=== PATIENT | male | born 1980 | race African-American/Black ===

== ENCOUNTER 2020-12-16 15:08 | Inpatient (IN) | payer BC ==
[2020-12-16 17:02] VITALS: BMI 29.7
[2020-12-16] MEDS ORDERED: MAG HYDROX/AL HYDROX/SIMETH 30 ML UNIT-DOSE CUP PO PRN (20:36)
[2020-12-16] MEDS ORDERED: MAGNESIUM CITRATE 300 ML BOTTLE PO PRN (20:36)
[2020-12-16] MEDS ORDERED: NICOTINE POLACRILEX 2 MG GUM BC PRN (20:36)
[2020-12-16] MEDS ORDERED: IBUPROFEN 400 MG TABLET (FP) PO PRN (20:36)
[2020-12-16] MEDS ORDERED: LOPERAMIDE HCL 2 MG CAPSULE PO PRN (20:36)
[2020-12-16] MEDS ORDERED: MAGNESIUM HYDROX 2400MG/30ML ORAL SUSPENSION 30 ML CUP PO PRN (20:36)
[2020-12-16] MEDS ORDERED: P-EPHED 60MG/TRIPROLIDI 2.5MG TABLET PO PRN (20:36)
[2020-12-16] MEDS ORDERED: ACETAMINOPHEN 325 MG TABLET (FP) PO PRN (20:36)
[2020-12-16] MEDS ORDERED: TUBERCULIN PPD 5 TU/0.1ML VIAL ID ONE (22:08)
[2020-12-16] MEDS: MELATONIN 5 MG TABLETS PO SCH (23:03)
[2020-12-16] MEDS: THIAMINE HCL 100 MG TABLET (FP) PO SCH (23:05)
[2020-12-17] MEDS ORDERED: PT OWN MED DRAWER 7, Y5N ONE ×2 (09:02→19:13)
[2020-12-17] MEDS ORDERED: APIXABAN 5 MG TABLET PO SCH ×2 (09:15→10:00)
[2020-12-17] MEDS: NICOTINE 21 MG/24 HOURS TOPICAL PATCH TD SCH (09:50)
[2020-12-17] MEDS: FUROSEMIDE 40 MG TABLET (FP) PO SCH (09:51)
[2020-12-17] MEDS: APIXABAN 5 MG TABLET PO SCH ×2 (09:51→20:59)
[2020-12-17] MEDS: PANTOPRAZOLE 40 MG TABLET PO SCH (09:51)
[2020-12-17] MEDS: SPIRONOLACTONE 25 MG TABLET PO SCH (09:52)
[2020-12-17] MEDS: COLCHICINE 0.6 MG TAB PO SCH ×2 (09:52→20:59)
[2020-12-17] MEDS: predniSONE 20 MG TABLET (UD) PO SCH (09:52)
[2020-12-17] MEDS: PRENATAL VITAMINS W/ FOLIC ACID TABLET (FP) PO SCH (09:53)
[2020-12-17] MEDS: SACUBITRIL/VALSARTAN 24 MG-26 MG TABLET PO SCH ×2 (09:53→21:00)
[2020-12-17] MEDS: BUDESONIDE/FORMETEROL FUMARATE 80/4.5 mcg INHALER IH SCH ×2 (09:54→21:23)
[2020-12-17] MEDS ORDERED: ALBUTEROL SO4 HFA INHALER IH SCH (10:00)
[2020-12-17 10:21] LABS: ALBUMIN 3.3 g/dl (3.4-5.0); BLOOD UREA NITROGEN 21.4 mg/dL (7-18); CALCIUM 9.3 mg/dL (8.5-10.1); HEMATOCRIT 37.9 % (35.4-49); HEMOGLOBIN 12.5 GM/dL (11.7-16.9); MCH 33.4 pg (25.7-33.7); MEAN CELL VOLUME 101.2 fl (80-96); MEAN PLT VOLUME 10.7 fl (7.5-11.1); PLATELET COUNT 146 K/MM3 (134-434); RBC 3.75 M/mm3 (4.00-5.60); RDW 17.1 % (11.9-15.9); WHITE BLOOD COUNT 8.9 K/mm3 (4.0-10.0)
[2020-12-17 10:24] LABS: CREATININE 1.4 mg/dL (0.55-1.3)
[2020-12-17 10:25] LABS: BILIRUBIN,TOTAL 0.7 mg/dL (0.2-1)
[2020-12-17 10:26] LABS: TOT PROT 7.4 g/dl (6.4-8.2)
[2020-12-17] MEDS: ALBUTEROL SO4 HFA INHALER IH PRN (11:45)
[2020-12-17 14:45] LABS: EPI CELLS 4 /uL (0-25.1); HYALINE CASTS 1 /uL (0-3.1); URINE APPEARANCE CLEAR; URINE BACTERIA 54 /uL (0-1359); URINE BILIRUBIN NEGATIVE (NEGATIVE); URINE COLOR YELLOW; URINE GLUCOSE (UA) NEGATIVE (NEGATIVE); URINE KETONE NEGATIVE (NEGATIVE); URINE LEUK ESTERASE NEGATIVE (NEGATIVE); URINE NITRITE NEGATIVE (NEGATIVE); URINE PROTEIN 1+ (NEGATIVE); URINE RBC 4 /uL (0-23.9); URINE UROBILINOGEN 0.2 mg/dL (0.2-1.0); URINE WBC 6 /uL (0-25.8)
[2020-12-17] MEDS: THIAMINE HCL 100 MG TABLET (FP) PO SCH (20:59)
[2020-12-17] MEDS: MELATONIN 5 MG TABLETS PO SCH (20:59)
[2020-12-18] MEDS: BUDESONIDE/FORMETEROL FUMARATE 80/4.5 mcg INHALER IH SCH ×2 (09:30→21:09)
[2020-12-18] MEDS: ALBUTEROL SO4 HFA INHALER IH PRN (09:30)
[2020-12-18] MEDS: predniSONE 20 MG TABLET (UD) PO SCH (09:50)
[2020-12-18] MEDS: FUROSEMIDE 40 MG TABLET (FP) PO SCH (09:50)
[2020-12-18] MEDS: PANTOPRAZOLE 40 MG TABLET PO SCH (09:50)
[2020-12-18] MEDS: APIXABAN 5 MG TABLET PO SCH ×2 (09:50→21:07)
[2020-12-18] MEDS: SPIRONOLACTONE 25 MG TABLET PO SCH (09:50)
[2020-12-18] MEDS: SACUBITRIL/VALSARTAN 24 MG-26 MG TABLET PO SCH ×2 (09:51→21:09)
[2020-12-18] MEDS: COLCHICINE 0.6 MG TAB PO SCH ×2 (09:51→21:08)
[2020-12-18] MEDS: PRENATAL VITAMINS W/ FOLIC ACID TABLET (FP) PO SCH (09:52)
[2020-12-18] MEDS: NICOTINE 21 MG/24 HOURS TOPICAL PATCH TD SCH (09:52)
[2020-12-18] MEDS: THIAMINE HCL 100 MG TABLET (FP) PO SCH (21:07)
[2020-12-18] MEDS: MELATONIN 5 MG TABLETS PO SCH (21:07)
[2020-12-18] MEDS ORDERED: PT OWN MED DRAWER 7, Y5N ONE (21:08)
[2020-12-19] MEDS ORDERED: PT OWN MED DRAWER 7, Y5N ONE (08:43)
[2020-12-19] MEDS: SPIRONOLACTONE 25 MG TABLET PO SCH (09:26)
[2020-12-19] MEDS: APIXABAN 5 MG TABLET PO SCH ×2 (09:27→21:19)
[2020-12-19] MEDS: PANTOPRAZOLE 40 MG TABLET PO SCH (09:27)
[2020-12-19] MEDS: COLCHICINE 0.6 MG TAB PO SCH ×2 (09:27→21:19)
[2020-12-19] MEDS: FUROSEMIDE 40 MG TABLET (FP) PO SCH (09:27)
[2020-12-19] MEDS: predniSONE 20 MG TABLET (UD) PO SCH (09:27)
[2020-12-19] MEDS: BUDESONIDE/FORMETEROL FUMARATE 80/4.5 mcg INHALER IH SCH ×2 (09:28→21:19)
[2020-12-19] MEDS: NICOTINE 21 MG/24 HOURS TOPICAL PATCH TD SCH (09:28)
[2020-12-19] MEDS: PRENATAL VITAMINS W/ FOLIC ACID TABLET (FP) PO SCH (09:28)
[2020-12-19] MEDS: SACUBITRIL/VALSARTAN 24 MG-26 MG TABLET PO SCH ×2 (09:28→21:20)
[2020-12-19] MEDS: guaiFENesin 200 MG/10 ML 10 ML UNIT-DOSE CUPS PO PRN (18:48)
[2020-12-19] MEDS: MELATONIN 5 MG TABLETS PO SCH (21:20)
[2020-12-19] MEDS: THIAMINE HCL 100 MG TABLET (FP) PO SCH (21:20)
[2020-12-19 21:59] VITALS: TEMP 97.1
[2020-12-20] MEDS: guaiFENesin 200 MG/10 ML 10 ML UNIT-DOSE CUPS PO PRN (04:38)
[2020-12-20 08:09] LABS: SARS-CoV-2 NAA Not Detected (Not Detected)
[2020-12-20] MEDS ORDERED: PT OWN MED DRAWER 7, Y5N ONE (08:27)
[2020-12-20 08:58] VITALS: BP 123/83; PULSE 56
[2020-12-20] MEDS: predniSONE 20 MG TABLET (UD) PO SCH (09:02)
[2020-12-20] MEDS: APIXABAN 5 MG TABLET PO SCH (09:02)
[2020-12-20] MEDS: PANTOPRAZOLE 40 MG TABLET PO SCH (09:02)
[2020-12-20] MEDS: BUDESONIDE/FORMETEROL FUMARATE 80/4.5 mcg INHALER IH SCH (09:03)
[2020-12-20] MEDS: SACUBITRIL/VALSARTAN 24 MG-26 MG TABLET PO SCH (09:03)
[2020-12-20] MEDS: NICOTINE 21 MG/24 HOURS TOPICAL PATCH TD SCH (09:09)
[2020-12-20] MEDS: PRENATAL VITAMINS W/ FOLIC ACID TABLET (FP) PO SCH (09:09)
[2020-12-20] MEDS: FUROSEMIDE 40 MG TABLET (FP) PO SCH (10:00)
[2020-12-20] MEDS: COLCHICINE 0.6 MG TAB PO SCH (10:00)
[2020-12-20] MEDS: SPIRONOLACTONE 25 MG TABLET PO SCH (10:00)
== END 2020-12-20 14:30 | disposition short-term general hospital (02) | DRG 772 ==
LOC: YASAS 15:08 → Y3E 21:22
PROVIDERS: ADMIT Allergy & Immunology; ATTEND Allergy & Immunology
PROC: HZ42ZZZ Group Counseling for Substance Abuse Treatment, Cognitive-Behavioral (ICD-10-PCS; principal; 2020-12-16)
DX: F14.20 Cocaine dependence, uncomplicated (principal); F10.10 Alcohol abuse, uncomplicated; F17.210 Nicotine dependence, cigarettes, uncomplicated; F19.282 Other psychoactive substance dependence with psychoactive substance-induced sleep disorder; F19.24 Other psychoactive substance dependence with psychoactive substance-induced mood disorder; I11.0 Hypertensive heart disease with heart failure; I50.9 Heart failure, unspecified; J45.909 Unspecified asthma, uncomplicated; R07.89 Other chest pain; R06.02 Shortness of breath; R73.03 Prediabetes; R45.89 Other symptoms and signs involving emotional state; Z86.711 Personal history of pulmonary embolism; Z79.01 Long term (current) use of anticoagulants; Z59.0 Homelessness
CPT/HCPCS: 36415; 80053; 81003; 84132; 85027; 86780; 93005; 93010; C9803; U0003; U0005

== ENCOUNTER 2020-12-20 09:56 | Inpatient (IN) | payer BC ==
[2020-12-20 10:05] VITALS: BMI 27.8
[2020-12-20] MEDS ORDERED: FUROSEMIDE 40 MG/4 ML INJECTABLE VIAL IVPUSH ONE (10:45)
[2020-12-20 11:26] LABS: BASO % 0.7 % (0-2.0); EOS % 0.8 % (0-4.5); HEMATOCRIT 36.3 % (35.4-49); HEMOGLOBIN 11.9 GM/dL (11.7-16.9); LYMPH % 27.6 % (8-40); MCHC 32.8 g/dl (32.0-35.9); MEAN CELL VOLUME 100.6 fl (80-96); MEAN PLT VOLUME 10.4 fl (7.5-11.1); MONO % 13.1 % (3.8-10.2); NEUT % 57.8 % (42.8-82.8); PLATELET COUNT 205 K/MM3 (134-434); RBC 3.61 M/mm3 (4.00-5.60); WHITE BLOOD COUNT 7.7 K/mm3 (4.0-10.0)
[2020-12-20 11:37] LABS: INR 1.31 (0.83-1.09)
[2020-12-20 11:40] LABS: ACTIVATED PTT 30.5 SECONDS (25.2-36.5)
[2020-12-20 11:44] LABS: ALBUMIN 3.2 g/dl (3.4-5.0); CALCIUM 9.2 mg/dL (8.5-10.1); MAGNESIUM 2.1 mg/dL (1.8-2.4)
[2020-12-20] MEDS ORDERED: FUROSEMIDE 40 MG/4 ML INJECTABLE VIAL ONE (11:46)
[2020-12-20 11:47] LABS: CREATININE 1.1 mg/dL (0.55-1.3)
[2020-12-20 11:48] LABS: BILIRUBIN,TOTAL 0.6 mg/dL (0.2-1)
[2020-12-20 11:49] LABS: TOT PROT 7.3 g/dl (6.4-8.2)
[2020-12-20] MEDS ORDERED: ASPIRIN 81 MG CHEWABLE TABLETS PO ONE (14:00)
[2020-12-20] MEDS: PANTOPRAZOLE 40 MG TABLET PO SCH (16:18)
[2020-12-20] MEDS: SPIRONOLACTONE 25 MG TABLET PO SCH (16:19)
[2020-12-20] MEDS ORDERED: ALBUTEROL SO4 HFA INHALER IH ONE (18:29)
[2020-12-20] MEDS: ALBUTEROL SO4 HFA INHALER IH SCH ×2 (18:32→22:12)
[2020-12-20] MEDS ORDERED: COLCHICINE 0.6 MG CAP ONE (21:45)
[2020-12-20] MEDS ORDERED: ATORVASTATIN CA 80 MG TABLET (FP) ONE (21:45)
[2020-12-20] MEDS ORDERED: APIXABAN 5 MG TABLET ONE (21:45)
[2020-12-20] MEDS: COLCHICINE 0.6 MG CAP PO SCH (21:53)
[2020-12-20] MEDS: ATORVASTATIN CA 80 MG TABLET (FP) PO SCH (21:53)
[2020-12-20] MEDS: APIXABAN 5 MG TABLET PO SCH (21:53)
[2020-12-20] MEDS: SACUBITRIL/VALSARTAN 24 MG-26 MG TABLET PO SCH (22:12)
[2020-12-20] MEDS: BUDESONIDE/FORMETEROL FUMARATE 80/4.5 mcg INHALER IH SCH (22:12)
[2020-12-21] MEDS ORDERED: MELATONIN 5 MG TABLETS ONE (02:21)
[2020-12-21] MEDS: MELATONIN 5 MG TABLETS PO PRN (02:32)
[2020-12-21 06:37] LABS: BASO % 0.8 % (0-2.0); EOS % 0.8 % (0-4.5); HEMATOCRIT 36.2 % (35.4-49); HEMOGLOBIN 11.9 GM/dL (11.7-16.9); LYMPH % 29.6 % (8-40); MCH 33.3 pg (25.7-33.7); MCHC 32.9 g/dl (32.0-35.9); MEAN CELL VOLUME 101.2 fl (80-96); MEAN PLT VOLUME 10.2 fl (7.5-11.1); MONO % 9.7 % (3.8-10.2); NEUT % 59.1 % (42.8-82.8); PLATELET COUNT 186 K/MM3 (134-434); RBC 3.58 M/mm3 (4.00-5.60); RDW 17.1 % (11.9-15.9); WHITE BLOOD COUNT 7.6 K/mm3 (4.0-10.0)
[2020-12-21 06:44] LABS: INR 1.34 (0.83-1.09); PROTHROMBIN TIME (PATIENT) 16.3 SEC (9.7-13.0)
[2020-12-21 06:57] LABS: ALBUMIN 3.3 g/dl (3.4-5.0); MAGNESIUM 1.9 mg/dL (1.8-2.4)
[2020-12-21 06:58] LABS: CALCIUM 9.3 mg/dL (8.5-10.1)
[2020-12-21 06:59] LABS: BLOOD UREA NITROGEN 27.7 mg/dL (7-18)
[2020-12-21 07:01] LABS: CREATININE 1.3 mg/dL (0.55-1.3)
[2020-12-21 07:02] LABS: PHOSPHOROUS 5.4 mg/dL (2.5-4.9); TOT PROT 7.1 g/dl (6.4-8.2)
[2020-12-21 07:03] LABS: BILIRUBIN,TOTAL 0.7 mg/dL (0.2-1)
[2020-12-21] MEDS ORDERED: FUROSEMIDE 40 MG/4 ML INJECTABLE VIAL IVPUSH SCH (10:00)
[2020-12-21] MEDS ORDERED: APIXABAN 5 MG TABLET PO SCH (10:00)
[2020-12-21] MEDS: APIXABAN 5 MG TABLET PO SCH ×2 (11:06→21:42)
[2020-12-21] MEDS: SPIRONOLACTONE 25 MG TABLET PO SCH (11:06)
[2020-12-21] MEDS: ALBUTEROL SO4 HFA INHALER IH SCH ×4 (11:06→21:43)
[2020-12-21] MEDS: PANTOPRAZOLE 40 MG TABLET PO SCH (11:06)
[2020-12-21] MEDS: COLCHICINE 0.6 MG CAP PO SCH ×2 (11:06→21:42)
[2020-12-21] MEDS: BUDESONIDE/FORMETEROL FUMARATE 80/4.5 mcg INHALER IH SCH ×2 (13:21→22:27)
[2020-12-21] MEDS: SACUBITRIL/VALSARTAN 24 MG-26 MG TABLET PO SCH ×2 (13:21→21:42)
[2020-12-21] MEDS: FUROSEMIDE 40 MG/4 ML INJECTABLE VIAL IVPUSH SCH (17:34)
[2020-12-21] MEDS ORDERED: PT OWN MED DRAWER 7, Y5N ONE ×2 (21:12→21:14)
[2020-12-21] MEDS: ATORVASTATIN CA 80 MG TABLET (FP) PO SCH (21:43)
[2020-12-22] MEDS: FUROSEMIDE 40 MG/4 ML INJECTABLE VIAL IVPUSH SCH ×2 (05:46→17:01)
[2020-12-22 07:21] LABS: HEMATOCRIT 37.2 % (35.4-49); HEMOGLOBIN 12.3 GM/dL (11.7-16.9); MCH 32.9 pg (25.7-33.7); MCHC 33.1 g/dl (32.0-35.9); MEAN CELL VOLUME 99.3 fl (80-96); PLATELET COUNT 220 K/MM3 (134-434); RBC 3.74 M/mm3 (4.00-5.60); RDW 16.8 % (11.9-15.9)
[2020-12-22 07:42] LABS: CALCIUM 9.4 mg/dL (8.5-10.1)
[2020-12-22 07:43] LABS: BLOOD UREA NITROGEN 27.3 mg/dL (7-18)
[2020-12-22 07:45] LABS: ALBUMIN 3.2 g/dl (3.4-5.0)
[2020-12-22 07:46] LABS: CREATININE 1.3 mg/dL (0.55-1.3)
[2020-12-22 07:47] LABS: BILIRUBIN,TOTAL 0.9 mg/dL (0.2-1)
[2020-12-22] MEDS: SPIRONOLACTONE 25 MG TABLET PO SCH (09:52)
[2020-12-22] MEDS: APIXABAN 5 MG TABLET PO SCH (09:52)
[2020-12-22] MEDS: PANTOPRAZOLE 40 MG TABLET PO SCH (09:53)
[2020-12-22] MEDS: ALBUTEROL SO4 HFA INHALER IH SCH ×4 (09:53→21:50)
[2020-12-22] MEDS: COLCHICINE 0.6 MG CAP PO SCH ×2 (09:53→21:49)
[2020-12-22] MEDS: BUDESONIDE/FORMETEROL FUMARATE 80/4.5 mcg INHALER IH SCH ×2 (09:54→21:50)
[2020-12-22] MEDS: SACUBITRIL/VALSARTAN 24 MG-26 MG TABLET PO SCH ×2 (09:54→22:10)
[2020-12-22] MEDS ORDERED: PT OWN MED DRAWER 7, Y5N ONE (21:26)
[2020-12-22] MEDS: ATORVASTATIN CA 80 MG TABLET (FP) PO SCH (21:49)
[2020-12-22] MEDS: MELATONIN 5 MG TABLETS PO PRN (22:10)
[2020-12-23] MEDS: FUROSEMIDE 40 MG/4 ML INJECTABLE VIAL IVPUSH SCH ×2 (05:51→17:17)
[2020-12-23 07:48] LABS: HEMOGLOBIN 12.2 GM/dL (11.7-16.9); MCHC 32.9 g/dl (32.0-35.9); MEAN CELL VOLUME 100.4 fl (80-96); MEAN PLT VOLUME 10.3 fl (7.5-11.1); PLATELET COUNT 205 K/MM3 (134-434); RBC 3.68 M/mm3 (4.00-5.60); RDW 16.9 % (11.9-15.9); WHITE BLOOD COUNT 7.1 K/mm3 (4.0-10.0)
[2020-12-23 08:02] LABS: ALBUMIN 3.3 g/dl (3.4-5.0); CALCIUM 9.1 mg/dL (8.5-10.1)
[2020-12-23 08:03] LABS: BLOOD UREA NITROGEN 33.9 mg/dL (7-18)
[2020-12-23 08:06] LABS: CREATININE 1.3 mg/dL (0.55-1.3)
[2020-12-23 08:07] LABS: BILIRUBIN,TOTAL 0.8 mg/dL (0.2-1); TOT PROT 7.1 g/dl (6.4-8.2)
[2020-12-23] MEDS ORDERED: PT OWN MED DRAWER 7, Y5N ONE ×2 (09:24→21:08)
[2020-12-23] MEDS: ALBUTEROL SO4 HFA INHALER IH SCH ×4 (09:43→21:40)
[2020-12-23] MEDS: BUDESONIDE/FORMETEROL FUMARATE 80/4.5 mcg INHALER IH SCH ×2 (09:43→21:37)
[2020-12-23] MEDS: ENOXAPARIN NA (PORCINE) 40 MG/0.4 ML DISP.SYRIN SQ SCH (09:43)
[2020-12-23] MEDS: SPIRONOLACTONE 25 MG TABLET PO SCH (09:44)
[2020-12-23] MEDS: SACUBITRIL/VALSARTAN 24 MG-26 MG TABLET PO SCH ×2 (09:44→21:37)
[2020-12-23] MEDS: COLCHICINE 0.6 MG CAP PO SCH ×2 (09:44→21:46)
[2020-12-23] MEDS: PANTOPRAZOLE 40 MG TABLET PO SCH (09:44)
[2020-12-23] MEDS: MELATONIN 5 MG TABLETS PO PRN (21:36)
[2020-12-23] MEDS: ATORVASTATIN CA 80 MG TABLET (FP) PO SCH (21:37)
[2020-12-24 07:12] LABS: HEMATOCRIT 37.3 % (35.4-49); HEMOGLOBIN 12.7 GM/dL (11.7-16.9); MCH 33.9 pg (25.7-33.7); MCHC 34.1 g/dl (32.0-35.9); MEAN CELL VOLUME 99.2 fl (80-96); MEAN PLT VOLUME 9.7 fl (7.5-11.1); PLATELET COUNT 241 K/MM3 (134-434); RBC 3.76 M/mm3 (4.00-5.60); RDW 16.2 % (11.9-15.9); WHITE BLOOD COUNT 6.7 K/mm3 (4.0-10.0)
[2020-12-24 07:37] LABS: ALBUMIN 3.3 g/dl (3.4-5.0)
[2020-12-24 07:38] LABS: BLOOD UREA NITROGEN 34.4 mg/dL (7-18); CALCIUM 8.9 mg/dL (8.5-10.1)
[2020-12-24 07:42] LABS: CREATININE 1.4 mg/dL (0.55-1.3)
[2020-12-24 07:43] LABS: BILIRUBIN,TOTAL 0.9 mg/dL (0.2-1); TOT PROT 6.8 g/dl (6.4-8.2)
[2020-12-24] MEDS ORDERED: PT OWN MED DRAWER 7, Y5N ONE (09:35)
[2020-12-24] MEDS: ENOXAPARIN NA (PORCINE) 40 MG/0.4 ML DISP.SYRIN SQ SCH (09:45)
[2020-12-24] MEDS: PANTOPRAZOLE 40 MG TABLET PO SCH (09:45)
[2020-12-24] MEDS: ALBUTEROL SO4 HFA INHALER IH SCH ×3 (09:46→17:01)
[2020-12-24] MEDS: SPIRONOLACTONE 25 MG TABLET PO SCH (09:46)
[2020-12-24] MEDS: SACUBITRIL/VALSARTAN 24 MG-26 MG TABLET PO SCH (09:46)
[2020-12-24] MEDS: BUDESONIDE/FORMETEROL FUMARATE 80/4.5 mcg INHALER IH SCH (09:46)
[2020-12-24] MEDS: COLCHICINE 0.6 MG CAP PO SCH (09:46)
[2020-12-24] MEDS ORDERED: FUROSEMIDE 40 MG TABLET (FP) PO SCH (10:00)
[2020-12-24 10:05] VITALS: PULSE 102
[2020-12-24] MEDS ORDERED: FUROSEMIDE 40 MG TABLET (FP) PO ONE (11:35)
[2020-12-24 13:54] VITALS: BP 103/79; TEMP 98.3
== END 2020-12-24 17:46 | disposition home or self-care (01) | DRG 194 ==
LOC: JER 09:56 → JERBED 14:01 → J4W 12-21 09:18
PROVIDERS: ATTEND Internal Medicine
DX: I11.0 Hypertensive heart disease with heart failure (principal); F14.20 Cocaine dependence, uncomplicated; R18.8 Other ascites; I50.23 Acute on chronic systolic (congestive) heart failure; F10.10 Alcohol abuse, uncomplicated; Z91.14 Patient's other noncompliance with medication regimen; M10.9 Gout, unspecified; I48.91 Unspecified atrial fibrillation; E11.9 Type 2 diabetes mellitus without complications; Z79.01 Long term (current) use of anticoagulants; E78.5 Hyperlipidemia, unspecified; I42.0 Dilated cardiomyopathy; Z86.711 Personal history of pulmonary embolism
CPT/HCPCS: 36415; 71046-TC-FY; 71275-TC; 74177-TC; 76604; 76705-TC; 80053; 80061; 82550; 82607; 83721; 83735; 83880; 84100; 84484; 85025; 85027; 85610; 85730; 93005; 93010; 93306-TC; 93308; 99285-25; Q9967

== ENCOUNTER 2020-12-24 18:09 | Inpatient (IN) | payer BC ==
[2020-12-24 20:13] VITALS: BMI 27.8
[2020-12-24] MEDS ORDERED: MAGNESIUM HYDROX 2400MG/30ML ORAL SUSPENSION 30 ML CUP PO PRN (22:20)
[2020-12-24] MEDS ORDERED: MENTHOL/PHENOL 1 EACH UD MM PRN (22:20)
[2020-12-24] MEDS ORDERED: IBUPROFEN 400 MG TABLET (FP) PO PRN (22:20)
[2020-12-24] MEDS ORDERED: LOPERAMIDE HCL 2 MG CAPSULE PO PRN (22:20)
[2020-12-24] MEDS ORDERED: MAGNESIUM CITRATE 300 ML BOTTLE PO PRN (22:20)
[2020-12-24] MEDS ORDERED: NICOTINE POLACRILEX 2 MG GUM BUC PRN (22:20)
[2020-12-24] MEDS ORDERED: MAG HYDROX/AL HYDROX/SIMETH 30 ML UNIT-DOSE CUP PO PRN (22:20)
[2020-12-24] MEDS ORDERED: guaiFENesin 200 MG/10 ML 10 ML UNIT-DOSE CUPS PO PRN (22:20)
[2020-12-24] MEDS ORDERED: ACETAMINOPHEN 325 MG TABLET (FP) PO PRN (22:20)
[2020-12-24] MEDS ORDERED: P-EPHED 60MG/TRIPROLIDI 2.5MG TABLET PO PRN (22:20)
[2020-12-25] MEDS: MELATONIN 5 MG TABLETS PO SCH ×2 (00:51→21:48)
[2020-12-25] MEDS: NICOTINE 21 MG/24 HOURS TOPICAL PATCH TD SCH (09:56)
[2020-12-25] MEDS: PRENATAL VITAMINS W/ FOLIC ACID TABLET (FP) PO SCH (09:56)
[2020-12-25] MEDS: THIAMINE HCL 100 MG TABLET (FP) PO SCH (21:48)
[2020-12-26 06:34] VITALS: TEMP 97.7
[2020-12-26] MEDS: NICOTINE 21 MG/24 HOURS TOPICAL PATCH TD SCH (09:51)
[2020-12-26] MEDS: PRENATAL VITAMINS W/ FOLIC ACID TABLET (FP) PO SCH (09:51)
[2020-12-26] MEDS: FUROSEMIDE 40 MG TABLET (FP) PO SCH (11:56)
[2020-12-26] MEDS: SPIRONOLACTONE 25 MG TABLET PO SCH (11:56)
[2020-12-26] MEDS: PANTOPRAZOLE 40 MG TABLET PO SCH (11:57)
[2020-12-26] MEDS: SACUBITRIL/VALSARTAN 24 MG-26 MG TABLET PO SCH (21:21)
[2020-12-26] MEDS: THIAMINE HCL 100 MG TABLET (FP) PO SCH (21:21)
[2020-12-26] MEDS: COLCHICINE 0.6 MG TAB PO SCH (21:21)
[2020-12-26] MEDS: MELATONIN 5 MG TABLETS PO SCH (21:21)
[2020-12-26] MEDS: BUDESONIDE/FORMETEROL FUMARATE 80/4.5 mcg INHALER IH SCH (21:25)
[2020-12-27 07:11] VITALS: BP 112/72; PULSE 103
[2020-12-27] MEDS: SACUBITRIL/VALSARTAN 24 MG-26 MG TABLET PO SCH (09:59)
[2020-12-27] MEDS: FUROSEMIDE 40 MG TABLET (FP) PO SCH (09:59)
[2020-12-27] MEDS: SPIRONOLACTONE 25 MG TABLET PO SCH (09:59)
[2020-12-27] MEDS: PANTOPRAZOLE 40 MG TABLET PO SCH (09:59)
[2020-12-27] MEDS: PRENATAL VITAMINS W/ FOLIC ACID TABLET (FP) PO SCH (09:59)
[2020-12-27] MEDS: COLCHICINE 0.6 MG TAB PO SCH (09:59)
[2020-12-27] MEDS: BUDESONIDE/FORMETEROL FUMARATE 80/4.5 mcg INHALER IH SCH (10:01)
[2020-12-27] MEDS: NICOTINE 21 MG/24 HOURS TOPICAL PATCH TD SCH (10:30)
== END 2020-12-27 12:32 | disposition home or self-care (01) | DRG 772 ==
LOC: YASAS 18:09 → Y5N 22:20
PROVIDERS: ADMIT Allergy & Immunology; ATTEND Allergy & Immunology
PROC: HZ42ZZZ Group Counseling for Substance Abuse Treatment, Cognitive-Behavioral (ICD-10-PCS; principal; 2020-12-24)
DX: F10.20 Alcohol dependence, uncomplicated (principal); F14.20 Cocaine dependence, uncomplicated; F17.210 Nicotine dependence, cigarettes, uncomplicated; F19.24 Other psychoactive substance dependence with psychoactive substance-induced mood disorder; I11.0 Hypertensive heart disease with heart failure; I50.23 Acute on chronic systolic (congestive) heart failure; R18.8 Other ascites; Z86.711 Personal history of pulmonary embolism; R45.89 Other symptoms and signs involving emotional state; Z91.19 Patient's noncompliance with other medical treatment and regimen; R73.03 Prediabetes